=== PATIENT | female | born 1995 | race Caucasian/White ===

== ENCOUNTER 2017-06-26 03:13 | Emergency (ER) | payer OTHER ==
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
== END 2017-06-26 04:03 | disposition home or self-care (01) ==
LOC: ERS 03:13
DX: S60.212A Contusion of left wrist, initial encounter (principal); J45.909 Unspecified asthma, uncomplicated; V03.90XA Pedestrian on foot injured in collision with car, pick-up truck or van, unspecified whether traffic or nontraffic accident, initial encounter